=== PATIENT | male | born 1985 | race Caucasian/White ===

== ENCOUNTER 2017-03-10 15:27 | Emergency (ER) | payer SELFPAY ==
[~2017-03-10] VITALS: Ht 172.7 cm; Wt 68.0 kg
[~2017-03-10 15:27] MED LIST: ALBU1AER INH; ALBU8I INH; DICL50 PO
[2017-03-10 16:12] VITALS: BP 120/70; PULSE 95; RESP 16; TEMP 98; O2SAT 100
--- NOTE | 2017-03-10 16:18 | PD ---
HPI Chief Complaint: Medical Clearance Time Seen by Provider: 16:17 Travel History International Travel<30 days: No Contact w/Intl Traveler<30days: No Traveled to known affect area: No History of Present Illness HPI 31-year-old male. The patient is addicted to heroin. Today he injected heroin and was found by police. He received Narcan. He denies suicidal intention. He arrives as a [place] act evidently according to standard police protocol for all unintentional heroin overdose. Location generalized. Timing resolved. PFSH Past Medical History Asthma: Yes Diminished Hearing: No Kidney Stones: Yes Past Surgical History Other Surgery: Yes (UNKNOWN KIDNEY SURGERY) Social History Alcohol Use: No (PT CURRENTLY IN REHAB FOR ETOH ABOUSE) Tobacco Use: Yes (1 CIG/DAY) Substance Use: No (PT CURRENTLY IN REHAB FOR PSA) Allergies-Medications (Allergen,Severity, Reaction): Coded Allergies: No Known Allergies (Verified , 05/12/14) Reported Meds & Prescriptions Reported Meds & Active Scripts Active No Active Prescriptions or Reported Medications Review of Systems Except as stated in HPI: all other systems reviewed are Neg Physical Exam Narrative GENERAL: well nourished well-developed 31-year-old male SKIN: Focused skin assessment warm/dry. HEAD: Atraumatic. Normocephalic. EYES: Pupils equal and round. No scleral icterus. No injection or drainage. ENT: No nasal bleeding or discharge. Mucous membranes pink and moist. NECK: Trachea midline. No JVD. CARDIOVASCULAR: Regular rate and rhythm. No murmur appreciated. RESPIRATORY: No accessory muscle use. Clear to auscultation. Breath sounds equal bilaterally. GASTROINTESTINAL: Abdomen soft, non-tender, nondistended. Hepatic and splenic margins not palpable. MUSCULOSKELETAL: No obvious deformities. No clubbing. No cyanosis. No edema. NEUROLOGICAL: Awake and alert. No obvious cranial nerve deficits. Motor grossly within normal limits. Normal speech. PSYCHIATRIC: Appropriate mood and affect; insight and judgment normal. Data Data Last Documented VS Vital Signs Date Time Temp Pulse Resp B/P (MAP) Pulse Ox O2 Delivery O2 Flow Rate FiO2 03/10/17 16:29 95 03/10/17 16:16 20 03/10/17 16:12 98.0 120/70 (87) 100 MDM Medical Decision Making Medical Screen Exam Complete: Yes Emergency Medical Condition: Yes Medical Record Reviewed: Yes Differential Diagnosis Heroine overdose, intentional drug overdose, heroin addiction Narrative Course Pt denies HI/SI. BA lifted. Diagnosis Primary Impression: Heroin abuse Referrals: [facility] Additional Instructions: You have a choice when it comes to health care, and we are glad that you chose [facility]. Hopefully, we have met your expectations on today's visit. You are welcome to return to [facility] at any time, as we are committed to meeting the health care needs of our community. Med/Other Pt SpecificInfo: No Change to Meds Scripts No Active Prescriptions or Reported Meds Disposition: 01 DISCHARGE HOME Condition: Santiago Vega MD Mar 10, 2017 16:18
== END 2017-03-10 16:41 | disposition home or self-care (01) ==
LOC: NEPD 15:27
DX: F11.10 Opioid abuse, uncomplicated (principal)
CPT/HCPCS: 99283